=== PATIENT | female | born 1945 | race Caucasian/White ===

== ENCOUNTER 2016-03-29 12:42 | Inpatient (IN) | payer MEDICARE, OTHER ==
[~2016-03-29] VITALS: Ht 156.2 cm; Wt 75.8 kg
[2016-03-29] MEDS ORDERED: OPTIRAY 350 100 ML VIAL HMH IV ONE (12:43)
[2016-03-29] MEDS ORDERED: ONDANSETRON 4 MG VIAL ONE (14:43)
[2016-03-29] MEDS ORDERED: KETOROLAC 30 MG/ML VIAL ONE (14:43)
[2016-03-29] MEDS ORDERED: SALINE FLUSH 10 ML FLUSH PRN (17:55)
[2016-03-29] MEDS ORDERED: MORPHINE 2 MG/ML SYR IV PRN (17:55)
[2016-03-29] MEDS ORDERED: GLUCAGON 1 MG VIAL IM PRN (18:00)
[2016-03-29] MEDS ORDERED: DEXTROSE 50% SYRINGE 50 ML IV PRN (18:00)
[2016-03-29] MEDS ORDERED: ED METRONIDAZOLE IV 100 ML IV ONE (18:03)
[2016-03-29] MEDS ORDERED: LEVOFLOXACIN 750 MG/150 ML 150 ML IV ONE (18:15)
[2016-03-29 19:45] VITALS: BP_SYST 140; RESP 16; TEMP 98.5
[2016-03-29] MEDS: SALINE FLUSH 10 ML FLUSH SCH (20:00)
[2016-03-29] MEDS: SODIUM CHLORIDE 0.9% 1,000 ML IV SCH (20:02)
[2016-03-29 20:21] VITALS: Ht 156.2 cm; Wt 75.8 kg
[2016-03-29] MEDS: METRONIDAZOLE 500MG/100ML 100 ML IV SCH (23:56)
[2016-03-30] VITALS (8 sets, daily range): BP systolic 103–119; RESP 16–20; TEMP 97.5–98.1
[2016-03-30] MEDS: SODIUM CHLORIDE 0.9% FLUSH BAG 500 ML IV SCH (01:48)
[2016-03-30] MEDS: METRONIDAZOLE 500MG/100ML 100 ML IV SCH ×2 (08:39→17:10)
[2016-03-30] MEDS: SALINE FLUSH 10 ML FLUSH SCH ×2 (08:39→20:00)
[2016-03-30] MEDS ORDERED: LEVOFLOXACIN 500 MG/100 ML 100 ML IV SCH (09:00)
[2016-03-30] MEDS: LISINOPRIL 20 MG TAB PO SCH (19:54)
[2016-03-30] MEDS: ASPIRIN 81 MG CHEW TAB PO SCH (19:54)
[2016-03-30] MEDS ORDERED: ACETAMINOPHEN 325 MG TAB PO PRN (20:05)
[2016-03-30] MEDS: FAMOTIDINE 20 MG TAB PO SCH (21:06)
[2016-03-30] MEDS: SODIUM CHLORIDE 0.9% 1,000 ML IV SCH (23:46)
[2016-03-31 00:03] VITALS: BP_SYST 100; RESP 18; TEMP 98
[2016-03-31] MEDS: METRONIDAZOLE 500MG/100ML 100 ML IV SCH ×2 (00:36→08:08)
[2016-03-31 03:59] VITALS: BP_SYST 113; RESP 16; TEMP 97.7
[2016-03-31] MEDS: SODIUM CHLORIDE 0.9% FLUSH BAG 500 ML IV SCH (05:46)
[2016-03-31 07:04] VITALS: BP_SYST 128; RESP 16; TEMP 98.1
[2016-03-31 07:05] VITALS: RESP 16
[2016-03-31] MEDS: SALINE FLUSH 10 ML FLUSH SCH (08:08)
[2016-03-31] MEDS: LISINOPRIL 20 MG TAB PO SCH (08:09)
[2016-03-31] MEDS: FAMOTIDINE 20 MG TAB PO SCH (08:09)
[2016-03-31] MEDS: ASPIRIN 81 MG CHEW TAB PO SCH (08:09)
[2016-03-31 11:40] VITALS: BP_SYST 128; RESP 16; TEMP 98.1
== END 2016-03-31 12:12 | disposition home or self-care (01) | DRG 392 ==
LOC: ENRESERVDT → ENRESERVTM → ER 12:42 → ENPENDDIS 17:51 → EMR 17:51 → 5THW 19:20
PROVIDERS: ADMIT Internal Medicine; ATTEND Internal Medicine
DX: K57.90 Diverticulosis of intestine, part unspecified, without perforation or abscess without bleeding (principal); M06.9 Rheumatoid arthritis, unspecified; E11.9 Type 2 diabetes mellitus without complications; I10 Essential (primary) hypertension; D72.829 Elevated white blood cell count, unspecified; Z79.82 Long term (current) use of aspirin; Z79.84 Long term (current) use of oral hypoglycemic drugs
CPT/HCPCS: 36415; 74020; 74177; 80048; 80053; 81001; 82274; 82947; 83690; 85025; 87088; 87493; 96365; 96375; 99223; 99232; 99239